=== PATIENT | female | born 1980 | race Hispanic/Latino ===

== ENCOUNTER 2019-01-24 12:15 | Emergency (ER) | payer OTHER ==
[~2019-01-24] VITALS: Ht 154.9 cm; Wt 91.6 kg
[~2019-01-24 12:15] MED LIST: BUPROPION XL150 MG PO; CYMBALTA30 MG PO; LISINOPRIL-HCT1 EACH PO; VYVANSE60 MG PO
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
--- OUTSIDE RECORDS SUMMARY | 2019-01-24 12:19 | XMS REPORT | Clinical Summary ---
Author Author [facility] Organization [place] [facility] Address Unknown Phone Unavailable Care Team Providers Care Administrative Professional Name Role Phone Asked, No Pcp PCP Unavailable Allergies Comments Active Allergy Reactions Severity Noted Date Nsaids (Non-Steroidal GI Bleeding 04/26/2018 Anti-Inflammatory Drug) Medications End Date Status Medication Sig Dispensed Refills Start Date Active buPROPion SR (WELLBUTRIN TAKE ONE (1) 1 SR) 200 MG 12 hr tablet TABLET(S) BY 8 MOUTH EVERY MORNING AND EVERY AFTERNOON. Active clomiPHENE (CLOMID) 50 mg TAKE ONE (1) 1 tablet TABLET(S) BY 8 MOUTH ONCE A DAY ON DAY 3-7 OF MENSTRUAL CYCLE. Active estradiol (ESTRACE) 1 MG TAKE ONE (1) 1 tablet TABLET(S) BY 8 MOUTH TWICE A DAY ON DAYS 7-12 OF MENSTRUAL CYCLE. Active glyBURIDE (DIABETA) 2.5 TAKE ONE (1) 2 MG tablet TABLET(S) BY 8 MOUTH ONCE A DAY WITH BREAKFAST OR THE FIRST MAIN MEAL OF THE DAY. Active VYVANSE 70 mg capsule TAKE ONE (1) 0 CAPSULE(S) BY 8 MOUTH EVERY MORNING. Active metFORMIN (GLUCOPHAGE) TAKE ONE (1) 2 500 mg tablet TABLET(S) BY 8 MOUTH TWICE A DAY WITH MEALS. 05/31/2018 acetaminophen (TYLENOL Take 1 tablet 20 tablet 1 EXTRA STRENGTH) 500 MG (500 mg 8 tablet total) by mouth every 6 (six) hours as needed for mild pain for up to 30 days. Active Problems Problem Noted Date Hoarseness 05/08/2018 Encounters Care Team Description Date Type Specialty Oscar Odonnell MD Hoarseness (Primary Dx) 08/08/2018 Office Visit Otolaryngology Oscar Odonnell MD Hoarseness (Primary Dx) 05/08/2018 Office Visit Otolaryngology Elvira Sabillon MD 05/01/2018 Anesthesia General Surgery Event Oscar Odonnell MD LARYNGOSCOPY, MICRODIRECT W/ BIOPSY 05/01/2018 Surgery General Surgery Oscar Odonnell MD 05/01/2018 Hospital General Surgery Encounter Oscar Odonnell MD Preop testing (Primary Dx) 04/30/2018 Pre-Admit Pre-Admission Testing Testing Appointment Oscar Odonnell MD Hoarseness (Primary Dx) 04/26/2018 Office Visit Otolaryngology after 01/23/2018 Family History Medical History Relation Name Comments Diabetes Father Diabetes Mother Relation Name Status Comments Father Mother Social History Date Tobacco Use Types Packs/Day Years Used Never Smoker Smokeless Tobacco: Never Used Alcohol Use Drinks/Week oz/Week Comments No Sex Assigned at Date Recorded Not on file Industry Job Start Date Occupation Not on file Not on file Not on file Travel End Travel History Travel Start No recent travel history available. Last Filed Vital Signs Time Taken Vital Sign Reading 05/01/2018 1:55 PM CDT Blood Pressure 123/74 05/01/2018 1:55 PM CDT Pulse 85 05/01/2018 1:25 PM CDT Temperature 36.7 C (98 F) 05/01/2018 1:55 PM CDT Respiratory Rate 16 05/01/2018 1:55 PM CDT Oxygen Saturation 99% - Inhaled Oxygen - Concentration 08/08/2018 11:08 AM [employer]IC[employer] Weight 90.7 kg (200 lb) 08/08/2018 11:08 AM [employer]EST OFFIC[employer] Height 154.9 cm (5' 1") 08/08/2018 11:08 AM [employer]EST OFFICER Body Mass Index 37.79 Plan of Treatment Health Maintenance Due Date Last Done Comments INFLUENZA VACCINE 03/13/2019 Procedures Comments Procedure Name Priority Date/Time Associated Diagnosis SURGICAL PATHOLOGY Routine 05/01/2018 REQUEST 12:35 PM CDT OR AN ELECTIVE Routine 05/01/2018 ENDOTRACHEAL AIRWAY 12:34 PM CDT Procedure Note - Elvira Sabillon MD - 05/01/2018 12:34 PM CDT Airway Date/Time: 05/01/2018 12:34 PM Performed by: ELVIRA SABILLON Authorized by: ELVIRA SABILLON Location: OR Urgency: Elective Difficult Airway: No Anesthesio logist: ELVIRA SABILLON Preoxygena brooke with 100% O2: Yes C-spine Precaution s Maintained Throughout : Yes Mask Ventilatio n: Easy mask Final Airway Type: Endotrache al airway Final Endotrache al Airway: ETT Cuffed: Yes Technique Used: Video laryngosco py Devices/Me thods Used in Placement: Intubatin g stylet Insertion Site: Oral ETT Size (mm): 7.0 Cuff at minimum occlusion pressure: No Measured from: Gums Placement Verified by: CO2 detection, direct visualizat ion and equal breath sounds Laryngosco pic view: Grade I - full view of glottis Rapid Sequence Induction (RSI): No Modified RSI: No Number of Attempts at Approach: 1 Glidascop e mac 3 used without complicati ons LARYNGOSCOPY, DIRECT 05/01/2018 DISEASE OF VOCAL CORDS 11:00 AM CDT J83.3 POC GLUCOSE Routine 05/01/2018 10:22 AM CDT ESTIMATED GFR Routine 05/01/2018 9:30 AM CDT BASIC METABOLIC PANEL Routine 05/01/2018 9:30 AM CDT ECG 12-LEAD Routine 05/01/2018 9:28 AM CDT HCG QUALITATIVE, URINE Routine 04/30/2018 Preop testing SCREEN 10:45 AM CDT after 01/23/2018 Results * Surgical pathology request (05/01/2018 12:35 PM CDT) [facility] DEPARTMENT OF PATHOLOGY AND GENOMIC MEDICINE Surgical See link below for PDF Lab [facility] pathology Report DEPARTMENT OF report PATHOLOGY AND GENOMIC MEDICINE Result status This is Final Report for [facility] [id number] DEPARTMENT OF PATHOLOGY AND GENOMIC MEDICINE Specimen Performing Organization Address City/State/Zipcode Phone Number [facility] [place] [address] [place] [address] PATHOLOGY AND GENOMIC MEDICINE * POC glucose (05/01/2018 10:22 AM CDT) POC glucose 105 (H) 65 - 99 mg/dL [facility] Comment: DEPARTMENT OF Meter ID: [id number] PATHOLOGY AND Studio Operations Manager: Ronnie Torres GENOMIC MEDICINE Specimen Performing Organization Address [facility] Phone Number [address] [place] [address] PATHOLOGY AND GENOMIC MEDICINE * Estimated GFR (05/01/2018 9:30 AM CDT) [facility] Estimated GFR >=90 mL/min/1.73 m2 [facility] Comment: DE[facility] OF [facility] PATHOLOGY AND [place] [address] MEDICINE >=90 Normal or high G2 60-89Mildly decreased I2u34-62 Mildly to moderately decreased V0c66-95 Moderately to severely decreased G4 15-29Severely decreased G5 <15Kidney failure The eGFR was calculated using the Chronic Kidney Disease Epidemiology Collaboration (CKD-EPI) equation. Interpretation is based on recommendations of the National Kidney Foundation-Kidney Disease Outcomes Quality Initiative (NKF-KDOQI) published in 2014. Specimen Plasma specimen Performing Organization Address [facility] Phone Number [address] [place] [address] PATHOLOGY AND [facility] * Basic metabolic panel (05/01/2018 9:30 AM CDT) [facility] Sodium 139 135 - 148 mEq/L [facility] DEPARTMENT OF PATHOLOGY AND GENOMIC MEDICINE Potassium 4.1 3.5 - 5.0 mEq/L [facility] DEPARTMENT OF PATHOLOGY AND GENOMIC MEDICINE Chloride 105 98 - 112 mEq/L [facility] DEPARTMENT OF PATHOLOGY AND GENOMIC MEDICINE CO2 24 24 - 31 mEq/L [facility] DEPARTMENT OF PATHOLOGY AND GENOMIC MEDICINE Anion gap 10@ANIO 7 - 15 mEq/L [facility] DEPARTMENT OF PATHOLOGY AND GENOMIC MEDICINE BUN 10 6 - 20 mg/dL [facility] DEPARTMENT OF PATHOLOGY AND GENOMIC MEDICINE Creatinine 0.60 0.50 - 0.90 mg/dL [facility] DEPARTMENT OF PATHOLOGY AND GENOMIC MEDICINE Glucose 125 (H) 65 - 99 mg/dL [facility] DEPARTMENT OF PATHOLOGY AND GENOMIC MEDICINE Calcium 8.6 8.3 - 10.2 mg/dL [facility] DEPARTMENT OF PATHOLOGY AND GENOMIC MEDICINE Specimen Plasma specimen Performing Organization Address [facility]ode Phone Number [address] [place] [phone] PATHOLOGY AND GENOMIC MEDICINE * ECG 12 lead (05/01/2018 9:28 AM CDT) Ventricular 84 [facility] rate Atrial rate 84 [facility] OR interval 136 [facility] QRSD interval 70 [facility] QT interval 400 [facility] QTC interval 472 [facility] P axis 1 27 [facility] QRS axis 1 -29 [facility] T wave axis 38 [facility] EKG impression Normal sinus rhythm-RSR' or QR [facility] pattern in V1 suggests right ventricular conduction delay-Borderline ECG-No previous ECGs available- Specimen Performing Organization Address City/State/[facility] Cent[facility]ode Phone Number [facility] MUSE [address] [place] [address] * hCG qualitative, urine screen (04/30/2018 10:45 AM CDT) hCG Negative Negative [facility] qualitative, Comment: DEPARTMENT OF urine The manufacturers stated PATHOLOGY AND sensitivity of HcG test for GENOMIC serum is >/=10 MEDICINE mIU/ml and urine is >/=20mIU/ml. Specimen Urine Performing Organization Address City/State/Zipcode Phone Number [facility] DEPARTMENT OF [address] [place] [address] [place] [phone] PATHOLOGY AND GENOMIC MEDICINE after 01/23/2018 Insurance Type Payer Benefit Subscriber ID Effective Phone Address Plan / Dates Group HMO AETNA AETNA xxxxxxxxxx 2014-P HMO,POS,EP resent O, MC/EC Advance Directives Patient has advance care planning documents on file. For more information, julián e contact: Rajat Grullon [address] [place] [address]
[2019-01-24] MEDS ORDERED: HYDROCODONE/APAP 5MG-325MG TAB PO ONE (12:45)
[2019-01-24] MEDS ORDERED: DIPHTH/TETANUS/ACEL. PERTUSSIS 0.5 ML SYR IM ONE (12:45)
[2019-01-24] MEDS ORDERED: TETANUS/DIPHTHERIA TOX ADULT 0.5 ML SYR ONE (13:19)
--- NOTE | 2019-01-24 13:25 | NUR ---
Wounds irrigated at this time
[2019-01-24] MEDS ORDERED: TETANUS/DIPHTHERIA TOX ADULT 0.5 ML SYR IM ONE (13:30)
--- NOTE | 2019-01-24 14:03 | NUR ---
Steri strips applied at this time
--- NOTE | 2019-01-24 15:10 | Diagnostic Imaging Report ---
Exam: Left forearm, right hand, and left wrist 2 views each History: .White Comparison: None. Findings: No fracture or malalignment. Joint spaces preserved. No abnormal soft tissue calcification or soft tissue defect. Impression: No acute osseous abnormality Signed by: Dr. Miguel Marie M.D. on 01/24/2019 3:07 PM
--- NOTE | 2019-01-24 15:16 | NUR ---
Wrist brace applied at this time.
[2019-01-24 15:18] VITALS: BP 125/80
[2019-01-24] MEDS ORDERED: NEOMYCIN/POLYMYX/BACITR OINT 0.9 GM PKT TOP ONE (15:30)
[2019-01-24] MEDS ORDERED: NEOMYCIN/POLYMYX/BACITR OINT 0.9 GM PKT ONE (15:33)
== END 2019-01-24 15:43 | disposition home or self-care (01) ==
LOC: ER 12:15
DX: S50.872A Other superficial bite of left forearm, initial encounter (principal); S60.572A Other superficial bite of hand of left hand, initial encounter; S60.872A Other superficial bite of left wrist, initial encounter; S60.571A Other superficial bite of hand of right hand, initial encounter; W54.0XXA Bitten by dog, initial encounter; Y92.007 Garden or yard of unspecified non-institutional (private) residence as the place of occurrence of the external cause; Z23 Encounter for immunization
CPT/HCPCS: 90471; 90714; 99284

== ENCOUNTER 2019-04-22 16:22 | Emergency (ER) | payer OTHER ==
[~2019-04-22] VITALS: Ht 154.9 cm; Wt 91.6 kg
--- OUTSIDE RECORDS SUMMARY | 2019-04-22 16:24 | XMS REPORT | Clinical Summary ---
Author Author [facility] Address Unknown Phone Unavailable Care Team Providers Care Actimize Architect Name Role Phone Asked, No Pcp PCP [...] (Primary Dx) 04/26/2018 Office Visit Otolaryngology after 04/21/2018 Family History Medical History Relation Name Comments Diabetes Father Diabetes Mother Relation Name Status Comments Father Mother Social History Date Tobacco Use Types Packs/Day Years Used Never Smoker Smokeless Tobacco: Never Used Drinks/Week oz/Week Comments Alcohol Use No Sex Assigned at Date Recorded Not on file Industry Job Start Date Occupation Not on file Not on file Not on file Travel End Travel History Travel Start No recent travel history available. Last Filed Vital Signs Reading Time Taken Comments Vital Sign 123/74 05/01/2018 1:55 PM CDT Blood Pressure 85 05/01/2018 1:55 PM CDT Pulse 36.7 C (98 F) 05/01/2018 1:25 PM CDT Temperature 16 05/01/2018 1:55 PM CDT Respiratory Rate 99% 05/01/2018 1:55 PM CDT Oxygen Saturation - - Inhaled Oxygen Concentration 90.7 kg (200 lb) 08/08/2018 11:08 AM [employer] Weight 154.9 cm (5' 1") 08/08/2018 11:08 AM [employer] Height 37.79 08/08/2018 11:08 AM [employer] Body Mass Index Plan of Treatment Health Maintenance Due Date Last Done Comments CERVICAL CANCER SCREENING 2002 INFLUENZA VACCINE 03/13/2019 Procedures Comments Procedure Name Priority Date/Time Associated Diagnosis SURGICAL PATHOLOGY Routine 05/01/2018 REQUEST 12:35 PM CDT MD AN ELECTIVE Routine 05/01/2018 ENDOTRACHEAL AIRWAY 12:34 [...] LARYNGOSCOPY, DIRECT 05/01/2018 DISEASE OF VOCAL CORDS 12:21 PM CDT J83.3 POC GLUCOSE Routine 05/01/2018 10:22 AM CDT ESTIMATED GFR Routine 05/01/2018 9:30 AM CDT BASIC METABOLIC PANEL Routine 05/01/2018 9:30 AM CDT ECG 12-LEAD Routine 05/01/2018 9:28 AM CDT HCG QUALITATIVE, URINE Routine 04/30/2018 Preop testing SCREEN 10:45 AM CDT after 04/21/2018 Results * Surgical pathology request (05/01/2018 12:35 PM CDT) [facility] DEPARTMENT OF PATHOLOGY AND GENOMIC MEDICINE Surgical See link below for PDF Lab [facility] pathology Report DEPARTMENT OF report PATHOLOGY AND GENOMIC MEDICINE Result status This is Final Report for [facility] [id number] DEPARTMENT OF PATHOLOGY AND GENOMIC MEDICINE Specimen Performing Organization Address City/State/Zipcode Phone Number [facility] [place] [address] [place] [address] PATHOLOGY AND GENOMIC MEDICINE * POC glucose (05/01/2018 10:22 AM CDT) [facility] POC glucose 105 (H) 65 - 99 mg/dL [facility] Comment: DEPARTMENT OF Meter ID: [id number] PATHOLOGY AND C Web Developer: Ronnie Torres GENOMIC MEDICINE Specimen Performing Organization Address [facility] Phone Number [address] [place] [address] PATHOLOGY AND GENOMIC MEDICINE * Estimated GFR (05/01/2018 9:30 AM CDT) [facility] Estimated GFR >=90 mL/min/1.73 m2 [facility] Comment: DEPARTMENT OF [facility] PATHOLOGY AND rpretation GENOMIC G1 MEDICINE >=90 Normal or high G2 60-89Mildly decreased D1o31-02 Mildly to moderately decreased H9u08-21 Moderately to severely decreased G4 15-29Severely decreased G5 <15Kidney failure The eGFR was calculated using the Chronic Kidney Disease Epidemiology Collaboration (CKD-EPI) equation. Interpretation is based on recommendations of the National Kidney Foundation-Kidney Disease Outcomes Quality Initiative (NKF-KDOQI) published in 2014. Specimen Plasma specimen Performing Organization Address [facility] Unit[facility] Phone Number [address] [place] [address] PATHOLOGY AND GENOMIC [facility] * Basic metabolic panel (05/01/2018 9:30 AM CDT) [facility] Sodium 139 135 - 148 mEq/L [facility] DEPARTMENT OF PATHOLOGY AND GENOMIC MEDICINE Potassium 4.1 3.5 - 5.0 mEq/L [facility] DEPARTMENT OF PATHOLOGY AND GENOMIC MEDICINE Chloride 105 98 - 112 mEq/L [facility] DEPARTMENT OF PATHOLOGY AND GENOMIC MEDICINE CO2 24 24 - 31 mEq/L [facility] DEPARTMENT OF PATHOLOGY AND GENOMIC MEDICINE Anion gap 10@ANIO 7 - 15 mEq/L [facility] DEPARTMENT OF PATHOLOGY AND GENOMIC MEDICINE BUN 10 6 - 20 mg/dL [facility] DEPARTMENT OF PATHOLOGY AND GENOMIC MEDICINE Creatinine 0.60 0.50 - 0.90 mg/dL [facility] DEPARTMENT OF PATHOLOGY AND GENOMIC MEDICINE Glucose 125 (H) 65 - 99 mg/dL [facility] DEPARTMENT OF PATHOLOGY AND GENOMIC MEDICINE Calcium 8.6 8.3 - 10.2 mg/dL [facility] DEPARTMENT OF PATHOLOGY AND GENOMIC MEDICINE Specimen Plasma specimen Performing Organization Address [facility]/Zipcode Phone Number [address] [place] [address] PATHOLOGY AND GENOMIC MEDICINE * ECG 12 lead (05/01/2018 9:28 AM CDT) Ventricular 84 [facility] rate Atrial rate 84 [facility] MD interval 136 [facility] QRSD interval 70 [facility] QT interval 400 [facility] QTC interval 472 [facility] P axis 1 27 [facility] QRS axis 1 -29 [facility] T wave axis 38 [facility] EKG impression Normal sinus rhythm-RSR' or QR [facility] pattern in V1 suggests right ventricular conduction delay-Borderline ECG-No previous ECGs available- Specimen Performing Organization Address City/State/Zipcode Phone Number [facility] MUSE [address] [place] [address] * hCG qualitative, urine screen (04/30/2018 10:45 AM CDT) hCG Negative Negative [facility] qualitative, Comment: DEPARTMENT OF urine The manufacturers stated PATHOLOGY AND sensitivity of HcG test for GENOMIC serum is >/=10 MEDICINE mIU/ml and urine is >/=20mIU/ml. Specimen Urine Performing Organization Address City/State/Zipcode Phone Number [facility] DEPARTMENT OF [address] [place] [address] [place] [address] PATHOLOGY AND GENOMIC MEDICINE after 04/21/2018 Insurance Type Payer Benefit Subscriber ID Effective Phone Address Plan / Dates Group HMO AETNA AETNA xxxxxxxxxx 2014-P HMO,POS,EP resent O, MC/EC Advance Directives For more information, please contact: [phone] Patient Corporate Traffic Manager Explanation Type Date Recorded Advance Directives, Living Will and Medical Power of Supervisor Computer Operations
[2019-04-22] MEDS ORDERED: SODIUM CHLORIDE 0.9% 1000ML 1,000 ML IV STA (16:30)
[2019-04-22] MEDS ORDERED: SODIUM CHLORIDE 0.9% 1000ML 500 ML IV STA (16:30)
[2019-04-22] MEDS ORDERED: ASPIRIN 81 MG CHEW TAB PO ONE (16:30)
[2019-04-22 16:53] LABS: BASOPHILS # (AUTO) 0.1 (0.0-0.1); BASOPHILS % 0.4 % (0.0-1.0); EOSINOPHILS # (AUTO) 0.1 (0.0-0.4); EOSINOPHILS % 0.4 % (0.0-6.0); HEMATOCRIT 41.6 % (34.2-44.1); HEMOGLOBIN 14.1 g/dL (12.0-16.0); LYMPHOCYTES # (AUTO) 4.3 (1.0-3.2); LYMPHOCYTES % 26.6 % (18.0-39.1); MEAN CORPUSCULAR HGB CONC 33.9 g/dL (31-35); MEAN CORPUSCULAR VOLUME 82.7 fL (81-99); MONOCYTES # (AUTO) 0.8 (0.2-0.8); MONOCYTES % 4.9 % (4.4-11.3); NEUTROPHILS # (AUTO) 10.7 (2.1-6.9); NEUTROPHILS % 67.3 % (38.7-80.0); PLATELET COUNT 307 x10e3/uL (140-360); RED BLOOD COUNT 5.03 x10e6/uL (3.6-5.1); RED CELL DISTRIBUTION WIDTH 13.7 % (11.7-14.4)
[2019-04-22 17:13] LABS: ALANINE AMINOTRANSFERASE 16 IU/L (0-55); ALBUMIN 3.9 g/dL (3.5-5.0); ALBUMIN/GLOBULIN RATIO 0.9 (0.8-2.0); ALKALINE PHOSPHATASE 120 IU/L (40-150); ANION GAP 18.5 mmol/L (8-16); BLOOD UREA NITROGEN 12 mg/dL (7-26); BUN/CREATININE RATIO 16 (6-25); CARBON DIOXIDE 21 mmol/L (22-29); CHLORIDE 101 mmol/L (98-107); CREATINE KINASE 55 IU/L (29-168); CREATININE, SERUM 0.77 mg/dL (0.57-1.11); EST GLOMERULAR FILTRATION RATE > 60 ML/MIN (60-); GLUCOSE 133 mg/dL (74-118); LIPASE 88 U/L (8-78); MAGNESIUM 1.6 MG/DL (1.3-2.1); POTASSIUM 3.5 mmol/L (3.5-5.1); SODIUM 137 mmol/L (136-145)
[2019-04-22 17:22] LABS: BILIRUBIN,URINE NEGATIVE (NEGATIVE); CLARITY,URINE SL CLOUDY (CLEAR); COLOR,URINE YELLOW (YELLOW); KETONES,URINE NEGATIVE (NEGATIVE); LEUKOCYTE ESTERASE ,URINE NEGATIVE (NEGATIVE); NITRITE,URINE NEGATIVE (NEGATIVE); PROTEIN,URINE DIPSTICK TRACE (NEGATIVE); URINE UROBILINOGEN 0.2 mg/dL (0.2 - 1)
[2019-04-22 17:24] LABS: AMPHETAMINES SCREEN,URINE NEGATIVE (NEGATIVE); BENZODIAZEPINES SCREEN,URINE NEGATIVE (NEGATIVE); PHENCYCLIDINE SCREEN,URINE NEGATIVE (NEGATIVE); PREGNANCY TEST, URINE NEGATIVE (NEGATIVE)
[2019-04-22 17:36] LABS: AMORPHOUS SEDIMENT,URINE MODERATE (FEW); BACTERIA,URINE MODERATE /HPF; EPITHELIAL CELLS,URINE MANY /LPF; TRANSITIONAL EPI CELLS,URINE MODERATE
[2019-04-22 17:49] LABS: THYROID STIMULATING HORMONE 1.263 uIU/mL (0.350-4.940)
--- NOTE | 2019-04-22 19:50 | Diagnostic Imaging Report ---
EXAMINATION: CHEST SINGLE (NOT PORTABLE) INDICATION: ^ERMD ORDER ^[id number] ^1730 ^Y COMPARISON: None FINDINGS: AP view TUBES and LINES: None. LUNGS: Lungs are well inflated. Lungs are clear. There is no evidence of pneumonia or pulmonary edema. PLEURA: No pleural effusion or pneumothorax. HEART AND MEDIASTINUM: The cardiomediastinal silhouette is unremarkable.. BONES AND SOFT TISSUES: No acute osseous lesion. Soft tissues are unremarkable. UPPER ABDOMEN: No free air under the diaphragm. Right upper quadrant cholecystectomy clips. IMPRESSION: No acute thoracic abnormality. Signed by: Dr. Sophie Hernandez M.D. on 04/22/2019 7:46 PM
[2019-04-22 20:04] VITALS: BP 138/82
== END 2019-04-22 19:23 | disposition home or self-care (01) ==
LOC: ER 16:22
DX: R07.89 Other chest pain (principal); R06.00 Dyspnea, unspecified; F41.9 Anxiety disorder, unspecified; F32.9 Major depressive disorder, single episode, unspecified; Z98.84 Bariatric surgery status
CPT/HCPCS: 36415; 71045; 80053; 80307; 81001; 81025; 82550; 82553; 83690; 83735; 83880; 84443; 84484; 85025; 85379; 87086; 93005; 99283